=== PATIENT | female | born 1965 | race Caucasian/White ===

== ENCOUNTER 2016-04-28 17:35 | Emergency (ER) | payer SELFPAY ==
--- NOTE | 2016-04-28 18:12 | ER Document Report ---
ED Medical Screen (RME) - General Stated Complaint: DIFFICULTY SWALLOWING Notes: two days ago sore throat with difficulty swallowing, ear pain and neck pain cannot open her mouth to let me examine her pharynx denies fevers, n/v/d +chills I have greeted and performed a rapid initial assessment of this patient. A comprehensive ED assessment and evaluation of the patient, analysis of test results and completion of the medical decision making process will be conducted by additional ED providers. - Related Data Allergies/Adverse Reactions: No Known Allergies Allergy (Verified 04/28/16 18:10) Past Medical History - Past Medical History Cardiac Medical History: Denies: Hx Heart Attack, Hx Hypertension Pulmonary Medical History: Denies: Hx Asthma Neurological Medical History: Denies: Hx Cerebrovascular Accident, Hx Seizures Endocrine Medical History: Reports: Hx Diabetes Mellitus Type 2 GI Medical History: Denies: Hx Hepatitis, Hx Hiatal Hernia, Hx Ulcer Infectious Medical History: Denies: Hx Hepatitis Past Surgical History: Reports: Hx Gynecologic Surgery - D&C. Denies: Hx Hysterectomy, Hx Mastectomy, Hx Open Heart Surgery, Hx Pacemaker - Immunizations Hx Diphtheria, Pertussis, Tetanus Vaccination: Yes Physical Exam - Vital signs Vitals: Temp Pulse Resp BP Pulse Ox 98.2 F 95 18 114/68 94 04/28/16 17:50 04/28/16 17:50 04/28/16 17:50 04/28/16 17:50 04/28/16 17:50 Course - Vital Signs Vital signs: Temp Pulse Resp BP Pulse Ox 98.2 F 95 18 114/68 94 04/28/16 17:50 04/28/16 17:50 04/28/16 17:50 04/28/16 17:50 04/28/16 17:50
[2016-04-28] MEDS ORDERED: NORMAL SALINE 1000 ML 1,000 ML IV ONE (20:48)
[2016-04-28] MEDS ORDERED: DEXAMETHASONE SOD PHOS INJ 10 MG/1 ML VIAL IV ONE (20:49)
[2016-04-28] MEDS ORDERED: ONDANSETRON HCL INJ/PF 4 MG/2 ML SDV IV ONE (20:50)
[2016-04-28] MEDS ORDERED: AMPICILLIN SOD/SULBACTAM 3 GM VIAL IV ONE (20:50)
[2016-04-28] MEDS ORDERED: MORPHINE SULFATE 10 MG/ML INJ IV ONE (20:50)
--- NOTE | 2016-04-28 20:51 | ER Document Report ---
ED ENT - General Time seen by provider: 20:40 Mode of Arrival: Ambulatory Information source: Patient TRAVEL OUTSIDE OF THE [place] IN LAST 30 DAYS: No - HPI Patient complains to provider of: Throat problem Onset: Other - see HPI notes Associated symptoms: Jaw pain, Sore throat <RADHA POSEY - Last Filed: 04/28/16 21:19> <HOANGJORGE ANN - Last Filed: 04/28/16 23:29> - General Chief Complaint: Sore Throat Stated Complaint: DIFFICULTY SWALLOWING Notes: Patient is a 50-year-old female presented emergency department with complaints of a sore throat and difficulty swallowing. Patient states that approximately 2 days ago she started having a sore throat and the pain went to her ears. Patient states that she can barely open her mouth without intense pain and she has not been able to eat or bite down. Patient states that her pain is radiating into her jaw. Patient has slight fever yesterday. Patient has a history of diabetes mellitus and COPD. Patient states that 10-20 years ago the patient had similar symptoms and pain and was hospitalized. Patient has no known allergies. (RADHA POSEY) - Related Data Allergies/Adverse Reactions: No Known Allergies Allergy (Verified 04/28/16 18:10) Past Medical History - General Information source: Patient - Social History Smoking Status: Current Every Day Smoker Chew tobacco use (# tins/day): No Frequency of alcohol use: None Drug Abuse: None Family History: Reviewed & Not Pertinent, Hypertension Patient has suicidal ideation: No Patient has homicidal ideation: No Endocrine Medical History: Reports: Hx Diabetes Mellitus Type 2 Past Surgical History: Reports: Hx Gynecologic Surgery - D&C - Immunizations Hx Diphtheria, Pertussis, Tetanus Vaccination: Yes Hx Pneumococcal Vaccination: 07/21/12 <RADHA POSEY - Last Filed: 04/28/16 21:19> Review of Systems - Review of Systems Constitutional: No symptoms reported EENT: See HPI, Ear pain, Throat pain, Difficulty swallowing, Mouth swelling Cardiovascular: No symptoms reported Respiratory: No symptoms reported Gastrointestinal: No symptoms reported Genitourinary: No symptoms reported Female Genitourinary: No symptoms reported Musculoskeletal: No symptoms reported Skin: No symptoms reported Hematologic/Lymphatic: No symptoms reported Neurological/Psychological: No symptoms reported -: Yes All other systems reviewed and negative <RADHA POSEY - Last Filed: 04/28/16 21:19> Physical Exam - Vital signs Interpretation: Normal - General General appearance: Appears well, Alert In distress: Mild - HEENT Head: Normocephalic, Atraumatic Eyes: Normal Pupils: PERRL Mouth/Lips: Normal - trismus, tenderness to palpation over right jaw and tenderness to palpation over supramandibular, no erythema, supramandibular is swollen but no edematous Mucous membranes: Moist - Respiratory Respiratory status: No respiratory distress Chest status: Nontender Breath sounds: Normal Chest palpation: Normal - Cardiovascular Rhythm: Regular Heart sounds: Normal auscultation Murmur: No - Abdominal Inspection: Normal Distension: No distension Bowel sounds: Normal Tenderness: Nontender Organomegaly: No organomegaly - Back Back: Normal, Nontender - Extremities General upper extremity: Normal inspection, Normal ROM, Normal strength General lower extremity: Normal inspection, Normal ROM, Normal strength - Neurological Neuro grossly intact: Yes Cognition: Normal Orientation: AAOx4 [place] Coma Scale Eye Opening: Spontaneous [place] Coma Scale Verbal: Oriented [place] Coma Scale Motor: Obeys Commands [place] Coma Scale Total: 15 Speech: Normal - Psychological Associated symptoms: Normal affect, Normal mood - Skin Skin Temperature: Warm Skin Moisture: Dry <RADHA POSEY - Last Filed: 04/28/16 21:19> <JORGE BOLTON - Last Filed: 04/28/16 23:29> - Vital signs Vitals: Temp Pulse Resp BP Pulse Ox 98.2 F 95 18 114/68 94 04/28/16 17:50 04/28/16 17:50 04/28/16 17:50 04/28/16 17:50 04/28/16 17:50 (RADHA POSEY) (JORGE BOLTON) Course - Laboratory Result Diagrams: 04/28/16 21:00 04/28/16 21:00 <RADHA POSEY - Last Filed: 04/28/16 21:19> - Laboratory Result Diagrams: 04/28/16 21:00 04/28/16 21:00 - Diagnostic Test Radiology reviewed: Reports reviewed <JORGE BOLTON - Last Filed: 04/28/16 23:29> - Re-evaluation Re-evalutation: 04/28/16 23:07 Patient is a 50-year-old female who comes in with throat pain and some swelling on the right side of her face and submandibular area. No abscess collection on CT. Patient is able to now open her mouth. She is able to swallow. She is able to take by mouth. Patient also has wheezing and will be given DuoNeb. Patient is taking by mouth. No airway issue at this time. The patient will be discharged home with Augmentin and is to return immediately if she has any worsening or concerning symptoms such as difficulty breathing, talking, or swallowing. No further trismus at this time. Stable for discharge home. Patient understands and agrees with this plan. Stable at time of discharge. Of note, the patient has been discharged home with only a low-dose of prednisone for bronhospasm here in the emergency department due to her diabetes. (JORGE BOLTON) - Vital Signs Vital signs: Temp Pulse Resp BP Pulse Ox 98.2 F 95 18 114/68 94 04/28/16 17:50 04/28/16 17:50 04/28/16 17:50 04/28/16 17:50 04/28/16 17:50 (RADHA POSEY) (JORGE BOLTON) - Laboratory Laboratory results interpreted by me: 04/28/16 04/28/16 04/28/16 21:00 21:00 21:10 WBC 11.2 H Hgb 15.9 H Chloride 96 L Glucose 227 H POC Glucose 227 H AST 38 H ALT 55 H Alkaline Phosphatase 130 H (JORGE BOLTON) Critical Care Note - Critical Care Note Total time excluding time spent on procedures (mins): 35 - evaluation and management of trismus, multiple re-evaluations, management of bronchospasm, counseling of patient,, multiple re-evaluations <JORGE BOLTON - Last Filed: 04/28/16 23:29> Discharge <RADHA POSEY - Last Filed: 04/28/16 21:19> <JORGE BOLTON - Last Filed: 04/28/16 23:29> - Discharge Clinical Impression: Sore throat, Lymphadenopathy, Bronchospasm Diabetes Qualifiers: Diabetes mellitus type: type 2 Diabetes mellitus complication status: with hyperglycemia Diabetes mellitus intermodal dispatcher insulin use: without half-way use Qualified Code(s): E11.65 - Type 2 diabetes mellitus with hyperglycemia Condition: Stable Disposition: HOME, SELF-CARE Instructions: Sore Throat ([facility]), Antibiotic Therapy ([facility]), Lymphadenopathy ([facility] ), Diabetes ([facility]), Control of Diabetes During Illness ([facility]), Bronchospasm ([facility]) , Inhaled Bronchodilators ([facility]) Additional Instructions: Please return immediately if you have any worsening or concerning symptoms. Prescriptions: Acetaminophen with Codeine [Tylenol #3 Tablet] 1 each PO Q6HP PRN #14 tablet PRN Reason: Albuterol Sulfate [Proair HFA Inhalation Aerosol 8.5 gm MDI] 2 puff IH Q4H PRN # 1 mdi PRN Reason: Amox Tr/Potassium Clavulanate [Augmentin 875-125 Tablet] 1 tab PO BID 10 Days Metformin HCl 500 mg PO BID #60 tablet Prednisone 20 mg PO DAILY #3 tablet Forms: Return to Work, Smoking Cessation Education Scribe Attestation: 04/28/16 23:28 I personally performed the services described in the documentation, reviewed and edited the documentation which was dictated to the scribe in my presence, and it accurately records my words and actions. (JORGE BOLTON) Scribe Documentation - Scribe Written by [employer]:: Radha Posey 04/28/16 21:23 acting as scribe for :: Hoang <RADHA POSEY - Last Filed: 04/28/16 21:19>
[2016-04-28 21:19] LABS: ABSOLUTE EOSINOPHILS # (AUTO) 0.2 10^3/uL (0.0-0.6); ABSOLUTE LYMPHOCYTES (AUTO) 2.2 10^3/uL (0.5-4.7); ABSOLUTE MONOCYTES (AUTO) 0.8 10^3/uL (0.1-1.4); BASOPHILS % (AUTO) 0.2 % (0-2); EOSINOPHILS % (AUTO) 2.1 % (0-6); HEMATOCRIT 46.8 % (36.0-47.0); HEMOGLOBIN 15.9 g/dL (12.0-15.5); HGB HCT DIFFERENCE 0.9; LYMPHOCYTES % (AUTO) 19.4 % (13-45); MEAN CORPUSCULAR HEMOGLOBIN 31.2 pg (27.0-33.4); MEAN CORPUSCULAR VOLUME 92 fl (80-97); MONOCYTES % (AUTO) 7.3 % (3-13); RED CELL DISTRIBUTION WIDTH 13.7 % (11.5-14.0); WHITE BLOOD COUNT 11.2 10^3/uL (4.0-10.5)
[2016-04-28 21:33] LABS: ALANINE AMINOTRANSFERASE 55 U/L (9-52); ALBUMIN 4.7 g/dL (3.5-5.0); ALKALINE PHOSPHATASE 130 U/L (38-126); ANION GAP 13 (5-19); ASPARTATE AMINO TRANSFERASE 38 U/L (14-36); BILIRUBIN,TOTAL 1.2 mg/dL (0.2-1.3); BLOOD UREA NITROGEN 10 mg/dL (7-20); CALCIUM 9.6 mg/dL (8.4-10.2); CARBON DIOXIDE 30 mmol/L (22-30); CHLORIDE 96 mmol/L (98-107); CREATININE RESULT 0.63 mg/dL (0.52-1.25); GLUCOSE 227 mg/dL (75-110); POTASSIUM 4.5 mmol/L (3.6-5.0); SODIUM 138.8 mmol/L (137-145); TOTAL PROTEIN 7.6 g/dL (6.3-8.2)
[2016-04-28] MEDS ORDERED: IPRATROPIUM/ALBUTEROL 0.5-2.5 MG/3 ML AMPUL NEB ONE (23:01)
[2016-04-29 00:28] VITALS: BP 132/85
== END 2016-04-29 00:06 | disposition home or self-care (01) ==
LOC: ER 17:35
DX: J02.9 Acute pharyngitis, unspecified (principal); J98.01 Acute bronchospasm; E11.65 Type 2 diabetes mellitus with hyperglycemia; R59.0 Localized enlarged lymph nodes; R13.10 Dysphagia, unspecified; J44.9 Chronic obstructive pulmonary disease, unspecified; H92.09 Otalgia, unspecified ear; F17.200 Nicotine dependence, unspecified, uncomplicated; R22.0 Localized swelling, mass and lump, head
CPT/HCPCS: 94640; 99285; 96374; 96375; 36415; 82962; 85025; 80053; 70491; J0295; J2270; J2405; J1100; J7620